=== PATIENT | female | born 1980 | race Caucasian/White ===

== ENCOUNTER 2016-10-14 07:45 | Emergency (ER) | payer BC ==
[2016-10-14 08:43] VITALS: BP 91/54
== END 2016-10-14 08:43 | disposition home or self-care (01) ==
LOC: ED 07:45
DX: J02.9 Acute pharyngitis, unspecified (principal)
CPT/HCPCS: J0690

== ENCOUNTER 2016-10-15 00:07 | Inpatient (IN) | payer BC ==
[2016-10-15] VITALS (7 sets, daily range): BP systolic 85–98; BP diastolic 48–66
[~2016-10-15] VITALS: Ht 160 cm; Wt 62.6 kg
[2016-10-15 02:32] LABS: BASOPHIL % 1.6 % (0-2); RED CELL DISTRIBUTION WIDTH 12.2 % (11.5-14.5)
[2016-10-15 02:35] LABS: PLATELET COUNT 228 x10^3mcL (130-400)
[2016-10-15 02:43] LABS: CARBON DIOXIDE 25.1 mmol/L (21-32); CHLORIDE SERUM 100 mmol/L (98-107); CREATININE SERUM 0.8 mg/dL (0.6-1.0); GFR1 > 60 mL/min; GLUCOSE SERUM 117 mg/dL (74-106); POTASSIUM SERUM 3.2 mmol/L (3.5-5.1); SODIUM SERUM 134 mmol/L (136-145)
[2016-10-15 02:48] LABS: ALKALINE PHOSPHATASE 52 U/L (46-116); ALT/SGPT 13 U/L (14-59); AST/SGOT 14 U/L (15-37); TOTAL PROTEIN, SERUM 7.6 g/dL (6.4-8.2)
[2016-10-15 02:49] LABS: ALBUMIN 3.3 g/dL (3.4-5.0)
[2016-10-15 06:23] LABS: FREE T4 1.04 ng/dL (0.76-1.46); FREE THYROXINE INDEX 2.3 ug/dL (1.4-4.5); T4(THYROXINE) 6.3 ug/dL (4.7-13.3)
[2016-10-15 06:28] LABS: T3 TOTAL 0.45 ng/mL
[2016-10-15 07:10] LABS: MAGNESIUM 1.9 mg/dL (1.8-2.4); PHOSPHOROUS 2.5 mg/dL (2.5-4.9)
[2016-10-15 07:14] LABS: CHOLESTEROL/HDL RATIO 1.3
[2016-10-15 12:58] LABS: CALCIUM 8.2 mg/dL (8.5-10.1); CARBON DIOXIDE 22.3 mmol/L (21-32); CHLORIDE SERUM 105 mmol/L (98-107); CREATININE SERUM 0.6 mg/dL (0.6-1.0); GFR1 > 60 mL/min; GLUCOSE SERUM 135 mg/dL (74-106); POTASSIUM SERUM 3.6 mmol/L (3.5-5.1); SODIUM SERUM 137 mmol/L (136-145)
[2016-10-16 05:37] VITALS: BP 89/49
[2016-10-16 06:17] LABS: CALCIUM 7.9 mg/dL (8.5-10.1); CARBON DIOXIDE 23.9 mmol/L (21-32); CHLORIDE SERUM 109 mmol/L (98-107); CREATININE SERUM 0.6 mg/dL (0.6-1.0); GFR1 > 60 mL/min; GLUCOSE SERUM 117 mg/dL (74-106); MAGNESIUM 2.1 mg/dL (1.8-2.4); POTASSIUM SERUM 3.5 mmol/L (3.5-5.1); SODIUM SERUM 142 mmol/L (136-145)
[2016-10-16 06:32] LABS: ALBUMIN 2.3 g/dL (3.4-5.0)
[2016-10-16 07:11] VITALS: BP 96/61
[2016-10-16 07:48] LABS: BASOPHIL % 0.3 % (0-2); PLATELET COUNT 166 x10^3mcL (130-400)
[2016-10-16 08:57] LABS: UA SPECIFIC GRAVITY >=1.030 (1.005-1.035); microscopic required? YES; urine erythrocyte 2+ (NEGATIVE)
[2016-10-16 10:07] VITALS: BP 104/62
[2016-10-16 12:58] VITALS: BP 101/68
[2016-10-16 18:08] VITALS: BP 98/62
[2016-10-16 20:30] VITALS: BP 101/78
[2016-10-17 06:15] LABS: BASOPHIL % 0.2 % (0-2); PLATELET COUNT 202 x10^3mcL (130-400); RED CELL DISTRIBUTION WIDTH 13.1 % (11.5-14.5)
[2016-10-17 06:30] LABS: CALCIUM 8.5 mg/dL (8.5-10.1); CARBON DIOXIDE 22.7 mmol/L (21-32); CHLORIDE SERUM 107 mmol/L (98-107); CREATININE SERUM 0.5 mg/dL (0.6-1.0); GFR1 > 60 mL/min; GLUCOSE SERUM 146 mg/dL (74-106); PHOSPHOROUS 3.1 mg/dL (2.5-4.9); POTASSIUM SERUM 3.8 mmol/L (3.5-5.1); SODIUM SERUM 139 mmol/L (136-145)
[2016-10-17 06:55] VITALS: BP 103/68
[2016-10-17 09:41] VITALS: BP 93/50
[2016-10-17] MEDS ORDERED: CLEOCIN HCL150 MG PO (10:18)
[2016-10-17] MEDS ORDERED: LAC PO (10:19)
[2016-10-17] MEDS ORDERED: MEDROL4 MG PO (10:20)
[2016-10-17] MEDS ORDERED: OMEPRAZOLE20 M4 PO (10:26)
[2016-10-17 10:31] VITALS: BP 93/50
== END 2016-10-17 11:10 | disposition home or self-care (01) | DRG 153 ==
LOC: ED 00:07 → DU 05:31 → MU 05:31 → DU 08:20 → MU 10-16 09:15
PROVIDERS: Emergency Medicine; ADMIT Family Medicine
DX: J36 Peritonsillar abscess (principal); E87.1 Hypo-osmolality and hyponatremia; E87.6 Hypokalemia; E88.09 Other disorders of plasma-protein metabolism, not elsewhere classified
CPT/HCPCS: 83880; 84439; C9113; J0696; J1100; J1885; J2270; J2920; J2930; J3480; J3490; J7030; J7040; J7620; Q9967